=== PATIENT | male | born 1960 | race Caucasian/White ===

== ENCOUNTER 2018-09-19 10:00 | Outpatient (RCR) | payer OTHER ==
--- NOTE | 2018-08-26 12:35 | OT INITIAL EVALUATION ---
SUBJECTIVE: Patient is a 58 year old right hand dominate male referred to OP OT services for left hand weakness and difficulty gripping onto objects. Patient states this this issue started becoming more noticeable over the past month. Patient did not have anything occur that could pin point why this started occurring. Patient feels that maybe it could be related to his diabetes or changes in his medications that he is taking. Patient did not report of any difficult with performing his self cares or IADLS, but has concerns about gripping and holding onto objects with the left hand. Patient does report that he uses his left hand for playing computer games. Patient has been approved for 15 visits per his insurance provider. Previous Medical History: please refer to chart Occupation: volunteers OBJECTIVE: ROM: AROM Right Left Shoulder Flexion WFL WFL Shoulder Extension WFL WFL Shoulder Abduction WFL WFL Elbow Flexion/Extension WFL WFL Wrist Flexion/Extension WFL WFL Strength: MMT: Right Left Shoulder Flexion 5/5 5/5 Shoulder Extension 5/5 5/5 Shoulder Abduction 5/5 5/5 Elbow Flexion/Extension 5/5 5/5 Wrist Flexion/Extension 5/5 5/5 (5= normal, 4= good, 3= fair, 2= poor, 1= trace) Unstacker Right = 72.7# (Age/gender knoptrnhd=855.1#) Left=67.7# (Age/gender normative= 83.2#) Lateral Pinch Right = 21.2# (Age/gender normative= 24.2#) Left= 18.5# (Age/gender normative= 23#) 3 Point Pinch Right = 15.7# (Age/gender normative= 23.7#) Left= 14.5# (Age/gender normative= 21.3#) Sensation: no reports of changes in sensation Vision: no reports of changes in vision Special Test: 9 Hole Peg Test (dexterity) Right= 18 seconds (Age/gender normative= 19.2 seconds) Left= 20seconds (Age/gender normative= 21 seconds) ASSESSMENT Patient does present with bilateral decreased drop wire builder and pinch strength compared to his age group. Patient does not demonstrate with any deficits with bilateral hand coordination. The decrease in drop wire builder and pinch strength appears to be affecting the patient's ability to drop wire builder and carry objects with his left hand. Patient uses his left hand for picking up and carrying objects. Patient would benefit from skilled OT visits to increase functional use of the left hand. Short Term Goals 1.Patient will increase drop wire builder strength on the left hand by 5# in order to hold objects with the left hand. 2.Patient will increase left lateral pinch by 2# in order to complete ADLs. 3.Patient will increase left 3 point pinch by 2# in order to open up containers. PLAN: Plan to see patient 2 times a week for a total of 15 visits which includes the initial evaluation and re-evaluation. Patient may discharge from OT services before this timeframe. Plan of care to include: ther ex, ther act, self cares Thank you for this referral. If you have any questions, concerns, or comments about this report or plan, please contact me at [phone]. Maine Inman MS, OTR/L Occupational Therapist Provider Signature Date MTDD
[~2018-09-19 10:00] MED LIST: ALB0.5 INH; CEP500 PO; DEXT10SY2 PO; DIS250 PO; FLUT16SP20 NS; GEM600 PO; HYDR-3078 PO; HYDR473S4 PO; IBUP-1618 PO; OMEP-218 PO; PENI-22 PO; Z PACK
--- NOTE | 2018-09-19 11:48 | OT DISCHARGE SUMMARY ---
SUBJECTIVE: Patient is a 58 year old right hand dominate male referred to OP OT services for left hand weakness and difficulty gripping onto objects. Patient was seen in the clinic for three treatment sessions. Patient requested to hold therapy until October due to his schedule and work. OT services felt that it was best to discharge patient and will then resume therapy once a new referral is provided. Patient will be in contact with the clinic in a month. Previous Medical History: please refer to chart Occupation: volunteers OBJECTIVE: Patient declined to re-test the objective measurements in today's last session-felt that he hadn't made enough progress to re-test. All information is from the initial evaluation. ROM: AROM Right Left Shoulder Flexion WFL WFL Shoulder Extension WFL WFL Shoulder Abduction WFL WFL Elbow Flexion/Extension WFL WFL Wrist Flexion/Extension WFL WFL Strength: MMT: Right Left Shoulder Flexion 5/5 5/5 Shoulder Extension 5/5 5/5 Shoulder Abduction 5/5 5/5 Elbow Flexion/Extension 5/5 5/5 Wrist Flexion/Extension 5/5 5/5 (5= normal, 4= good, 3= fair, 2= poor, 1= trace) Seconds Inspector Right = 72.7# (Age/gender cgmoloypq=255.1#) Left=67.7# (Age/gender normative= 83.2#) Lateral Pinch Right = 21.2# (Age/gender normative= 24.2#) Left= 18.5# (Age/gender normative= 23#) 3 Point Pinch Right = 15.7# (Age/gender normative= 23.7#) Left= 14.5# (Age/gender normative= 21.3#) Sensation: no reports of changes in sensation Vision: no reports of changes in vision Special Test: 9 Hole Peg Test (dexterity) Right= 18 seconds (Age/gender normative= 19.2 seconds) Left= 20seconds (Age/gender normative= 21 seconds) ASSESSMENT Patient did well in treatment sessions. Did not have an difficulty using his hand in the strength and coordination activities. Patient requested to hold therapy at this time. Short Term Goals 1.Patient will increase government documents librarian strength on the left hand by 5# in order to hold objects with the left hand. unable to test per patient request 2.Patient will increase left lateral pinch by 2# in order to complete ADLs. unable to test per patient request 3.Patient will increase left 3 point pinch by 2# in order to open up containers. unable to test per patient request PLAN: Plan to discharge patient from therapy. Will plan to evaluate and treat patient in a month. Thank you for this referral. If you have any questions, concerns, or comments about this report or plan, please contact me at [phone]. Maine Inman MS, OTR/L Occupational Therapist Provider Signature Date MTDD
== END 2018-09-19 18:00 | disposition home or self-care (01) ==
LOC: OT 10:00
PROVIDERS: ATTEND Nurse Practitioner Gerontology
DX: M62.81 Muscle weakness (generalized) (principal); R29.898 Other symptoms and signs involving the musculoskeletal system
CPT/HCPCS: 97165